=== PATIENT | male | born 1985 | race Caucasian/White ===

== ENCOUNTER 2020-07-12 12:35 | Emergency (ER) | payer OTHER ==
[~2020-07-12] VITALS: Ht 162.6 cm; Wt 72.7 kg
--- NOTE | 2020-07-12 13:28 | NUR ---
Brought patient a liter of ice water to drink and he left without notifying anybody. Will attempt again to find him. Charge nurse notified of patient not able to be located at this time.
[2020-07-12 13:54] VITALS: BP 162/109
== END 2020-07-12 13:57 | disposition left against medical advice (07) ==
LOC: ER 12:35
DX: R05 Cough (principal); Z53.21 Procedure and treatment not carried out due to patient leaving prior to being seen by health care provider

== ENCOUNTER 2022-03-27 07:58 | Day surgery (SDC) | payer MEDICAID, OTHER ==
[~2022-03-27] VITALS: Ht 162.6 cm; Wt 64.9 kg
[2022-03-27] MEDS ORDERED: albumin 25% 100mL bottle x 1 IV PRN (08:20)
[2022-03-27] MEDS ORDERED: LACT10SO57 PO (08:57)
[2022-03-27] MEDS ORDERED: PANT-47 PO (08:57)
[2022-03-27] MEDS ORDERED: LANTUS SQ (08:57)
[2022-03-27] MEDS ORDERED: TORS10TA17 PO (08:57)
[2022-03-27] MEDS ORDERED: LIDOcaine 1%/PF 5ML 10 MG/ML VIAL SQ ONE (09:30)
[2022-03-27 09:53] VITALS: BP 135/93
[2022-03-27 10:08] VITALS: BP 142/82
[2022-03-27 10:23] VITALS: BP 125/78
[2022-03-27 10:38] VITALS: BP 145/55
[2022-03-27 10:55] VITALS: BP 138/79
[2022-03-27 12:11] VITALS: BP 133/93
== END 2022-03-27 11:05 | disposition home or self-care (01) ==
LOC: SSTAY O 07:58
PROVIDERS: ATTEND Radiology Diagnostic Radiology
DX: R18.8 Other ascites (principal); E11.9 Type 2 diabetes mellitus without complications; F10.20 Alcohol dependence, uncomplicated; K72.10 Chronic hepatic failure without coma; Z91.018 Allergy to other foods; Z88.8 Allergy status to other drugs, medicaments and biological substances; Z79.899 Other long term (current) drug therapy; Z79.4 Long term (current) use of insulin
CPT/HCPCS: 49083; J3490; P9047; Z7610; A6258